=== PATIENT | female | born 1995 | race Caucasian/White ===

== ENCOUNTER 2022-08-04 12:39 | Outpatient (REF) | payer BC, SELFPAY ==
[2022-08-04 16:33] LABS: Abs Immature Grans 0.03 10^3/uL (0.0-0.06); Absolute Basophil Count 0.05 10^3/uL (0.0-0.2); Absolute Eosinophil Count 0.06 10^3/uL (0.0-0.7); Absolute Lymphocyte Count 1.88 10^3/uL (1.2-3.4); Absolute Neutrophil Count 3.75 10^3/uL (1.2-6.7); Basophils % 0.8; Eosinophils % 0.9; HCT 40.5 % (36.0-46.0); HGB 13.7 g/dL (11.2-15.7); Immature Grans % 0.5; Lymphocytes % 29.5; MCH 33.3 pg (27.0-33.0); MCHC 33.8 % (32.0-36.0); MCV 98 fL (80-95); MPV 11.1 fL (8.0-11.0); Monocytes % 9.4; Neutrophils % 58.9; Platelet Count 188 10^3/uL (130-400); RBC 4.12 10^6/uL (3.93-5.22); RDW 12.1 % (11.7-14.6); RDW-SD 43.8 fL; WBC 6.37 10^3/uL (4.4-10.8)
[2022-08-04 16:56] LABS: Hemoglobin A1C 4.7 % (<5.7)
[2022-08-04 17:09] LABS: Vitamin D 25 Total 28.4 ng/mL (30-100)
[2022-08-04 17:17] LABS: ALT 26 U/L (14-59); AST 21 U/L (15-37); Albumin 3.9 g/dL (3.4-5.0); Alkaline Phosphatase 108 U/L (46-116); Anion Gap 8.7 mmol/L (3-11); BUN 10 mg/dL (7-18); Bilirubin, Total 0.4 mg/dL (0.2-1.0); CO2 28.3 mmol/L (21.0-32.0); CREATININE 0.8 mg/dL (0.55-1.02); Calcium 9.4 mg/dL (8.5-10.1); Chloride 102 mmol/L (98-107); Glucose 88 mg/dL (74-106); Potassium 4.2 mmol/L (3.5-5.1); Sodium 139 mmol/L (136-145); TSH (W/Ref FT4) 1.03 uIU/mL (0.36-3.74); Total Protein 7.4 g/dL (6.4-8.2); Vitamin B12 492 pg/mL (193-986)
[2022-08-04 17:53] LABS: VALPROIC ACID 70.5 ug/mL
== END 2022-08-04 12:40 | disposition home or self-care (01) ==
LOC: NCHCN 12:39
PROVIDERS: Visit Provider Registered Nurse
DX: F31.9 Bipolar disorder, unspecified (principal); Z79.899 Other long term (current) drug therapy; Z51.81 Encounter for therapeutic drug level monitoring
CPT/HCPCS: 80053; 82306; 80164; 82607; 83036; 84443; 85025

== ENCOUNTER 2023-01-11 19:31 | Outpatient (REF) | payer BC, SELFPAY ==
[2023-01-11 20:19] LABS: Abs Immature Grans 0.05 10^3/uL (0.0-0.06); Absolute Lymphocyte Count 2.32 10^3/uL (1.2-3.4); Absolute Monocyte Count 0.92 10^3/uL (0.1-0.8); Basophils % 0.4; Eosinophils % 0.4; HCT 41.4 % (36.0-46.0); HGB 13.9 g/dL (11.2-15.7); Immature Grans % 0.4; Lymphocytes % 20.6; MCH 33.9 pg (27.0-33.0); MCHC 33.6 % (32.0-36.0); MCV 101 fL (80-95); Monocytes % 8.2; Platelet Count 219 10^3/uL (130-400); RDW 12.4 % (11.7-14.6); RDW-SD 46.1 fL; WBC 11.27 10^3/uL (4.4-10.8)
[2023-01-11 20:20] LABS: Absolute Basophil Count 0.05 10^3/uL (0.0-0.2); Absolute Eosinophil Count 0.05 10^3/uL (0.0-0.7); Absolute Neutrophil Count 7.89 10^3/uL (1.2-6.7)
[2023-01-11 20:37] LABS: ALT 27 U/L (14-59); AST 15 U/L (15-37); Albumin 4.3 g/dL (3.4-5.0); Alkaline Phosphatase 84 U/L (46-116); Anion Gap 9.5 mmol/L (3-11); BUN 14 mg/dL (7-18); Bilirubin, Total 0.4 mg/dL (0.2-1.0); CO2 27.5 mmol/L (21.0-32.0); CREATININE 0.7 mg/dL (0.55-1.02); Calcium 9.6 mg/dL (8.5-10.1); Chloride 102 mmol/L (98-107); Estimated GFR 122.25 (mL/min/1.73m2); Glucose 83 mg/dL (74-106); Potassium 3.4 mmol/L (3.5-5.1); Sodium 139 mmol/L (136-145); TSH 0.79 uIU/mL (0.36-3.74); Total Protein 7.5 g/dL (6.4-8.2)
== END 2023-01-11 19:32 | disposition home or self-care (01) ==
LOC: NCHCN 19:31
PROVIDERS: Visit Provider Nurse Practitioner Psychiatric/Mental Health
DX: F31.89 Other bipolar disorder (principal); Z79.899 Other long term (current) drug therapy
CPT/HCPCS: 80053; 84443; 85025

== ENCOUNTER 2023-05-31 12:43 | Outpatient (REF) | payer BC, SELFPAY ==
[2023-05-31 15:34] LABS: FREE T4 0.75 ng/dL (0.76-1.46); TSH 1.62 uIU/Ml (0.36-3.74)
== END 2023-05-31 12:44 | disposition home or self-care (01) ==
LOC: NCHCN 12:43
PROVIDERS: Referring Provider Physician Assistant; Visit Provider Physician Assistant
DX: F31.89 Other bipolar disorder (principal)
CPT/HCPCS: 84439; 84443

== ENCOUNTER 2023-12-20 16:01 | Outpatient (REF) | payer OTHER, SELFPAY ==
[2023-12-20 16:05] LABS: ALT 94 U/L (14-59); AST 55 U/L (15-37); Albumin 4.2 g/dL (3.4-5.0); Alkaline Phosphatase 86 U/L (46-116); Anion Gap 6.7 mmol/L (3-11); BUN 11 mg/dL (7-18); Bilirubin, Total 0.42 mg/dL (0.2-1.0); CO2 28.3 mmol/L (21.0-32.0); CREATININE 0.9 mg/dL (0.55-1.02); Calcium 9.5 mg/dL (8.5-10.1); Chloride 105 mmol/L (98-107); Estimated GFR 89.86 (mL/min/1.73m2); FREE T4 0.82 ng/dL (0.76-1.46); Glucose 87 mg/dL (74-106); Potassium 4.3 mmol/L (3.5-5.1); Sodium 140 mmol/L (136-145); TSH 1.05 uIU/mL (0.36-3.74); Total Protein 7.2 g/dL (6.4-8.2)
[2023-12-20 16:33] LABS: Lithium 0.5 mmol/L (0.6-1.2)
== END 2023-12-20 16:02 | disposition home or self-care (01) ==
LOC: NCHCN 16:01
PROVIDERS: Visit Provider Physician Assistant
DX: F31.9 Bipolar disorder, unspecified (principal)
CPT/HCPCS: 80053; 80178; 84439; 84443

== ENCOUNTER 2024-02-02 16:42 | Outpatient (REF) | payer OTHER, SELFPAY ==
--- NOTE | 2024-02-02 12:45 | PAPFT_PTH ---
PATIENT: Jae Marshall LOC: [facility] U#:[id number] AGE/SX: 28/F ROOM: RE02/02/[address]: Liza Sung : 1995 BED: DIS: 02/02/2024 SPEC #: [id number] RECD: 02/03/24 13:29 STATUS: BETTY REQ #: [id number] LISANDRA: 02/02/24 12:[address]: Liza Sung DEPT: [facility] Cytology RECD BY: Asia Maxwell ENTERED: 02/03/24 13:29 SP TYPE: PAPFT OTHR DR: Unknown,Unknown Tissues: 1 - CX/ENDOCX FOR PAP SMEARS Procedures: PAP THIN PREP/[facility] Screening HPV DNA PROBE Comments: (HPV 16 & 18/45) (CHLAMYDIA/GC)
[2024-02-02 20:12] LABS: ALT 45 U/L (14-59); AST 24 U/L (15-37); Albumin 4.4 g/dL (3.4-5.0); Alkaline Phosphatase 96 U/L (46-116); Bilirubin, Total 0.36 mg/dL (0.2-1.0); Ferritin 117 ng/mL (8-252); Total Protein 7.6 g/dL (6.4-8.2)
[2024-02-02 20:26] LABS: Bilirubin, Direct 0.1 mg/dL (0.0-0.2)
[2024-02-02 21:03] LABS: Iron 95 ug/dL (50-170); Total Iron Binding Capacity 383 ug/dL (250-450)
[2024-02-03 19:28] LABS: HIV-1/2 Ag & Ab Screen Negative (Negative)
[2024-02-03 19:48] LABS: Hepatitis A Antibody IgM Negative (Negative); Hepatitis B Core Antibody Negative (Negative); Hepatitis B surface Ag Negative (Negative); Hepatitis C Ab w Rflx HCV PCR Negative (Negative)
[2024-02-06 11:45] LABS: Syphilis Serology (RPR) Negative (Negative)
[2024-02-06 12:34] LABS: Chlamydia Result Negative (Negative); GC Result Negative (Negative)
== END 2024-02-02 16:43 | disposition home or self-care (01) ==
LOC: NCHCN 16:42
PROVIDERS: Visit Provider Nurse Practitioner Family
DX: Z11.59 Encounter for screening for other viral diseases (principal); R74.01 Elevation of levels of liver transaminase levels
CPT/HCPCS: 80076; 86704; 86709; 86803; 87340; 87389; 87491; 87591; 88142; 82728; 83540; 83550; 86592; 87624